=== PATIENT | male | born 1975 | race Caucasian/White ===

== ENCOUNTER 2020-03-24 01:41 | Outpatient (CLI) | payer OTHER, SELFPAY ==
[2020-03-24 18:13] LABS: SARS-CoV-2 RNA PCR Negative
== END 2020-03-24 01:42 | disposition home or self-care (01) ==
LOC: ANHCOVIDDT 01:41
PROVIDERS: PCP Family Medicine; Visit Provider Internal Medicine Gastroenterology
DX: Z01.812 Encounter for preprocedural laboratory examination (principal); Z20.822 Contact with and (suspected) exposure to COVID-19
CPT/HCPCS: C9803; U0003; U0005

== ENCOUNTER 2020-03-27 02:36 | Day surgery (SDC) | payer OTHER, SELFPAY ==
[2020-03-16 08:50] VITALS: BMI 29.2
--- NOTE | 2020-03-25 15:41 | WPDANESEPPF ---
Anes - Initial Pre Proc Eval Procedure: Operation Date: 03/27/20 10:30 Proposed Procedures p Esophagogastroduodenoscopy & Colonoscopy - Frederick Angeles MD Date/Time: 03/25/20 15:41 Surgeon: Frederick Angeles MD Pre Op Diagnosis: abdominal Pain, Change In bowel Habits,Wt.Loss,Ref Patient Data Age: 44 Gender: M Height: 1.75 m Weight: 90 kg Allergies Allergy/AdvReac Type Severity Reaction Status Date / Time No Known Allergies Allergy Verified 03/27/20 09:18 Home Medications Medication Instructions Recorded Confirmed Type multivitamin 1 tablet PO DAILY 05/02/19 03/27/20 History fluticasone propionate 50 1 spray INTRANASAL BID #16 ml 02/26/20 03/27/20 Rx mcg/actuation nasal spray,suspension lansoprazole 30 mg capsule,delayed 30 mg PO DAILY #30 cap 02/26/20 03/27/20 Rx release Patient hx anesthesia problems: none Family hx anesthesia problems: none PMFSH Past Medical History Medical History Abdominal pain Abnormal fasting glucose BMI 29.0-29.9,adult Clear cell carcinoma of left kidney COVID-19 (10/21/19) Encounter for prostate cancer screening Encounter for wellness examination in adult Family history of colon cancer in father GERD (gastroesophageal reflux disease) Unexplained weight loss Vitamin B12 deficiency anemia Surgical History Surgical History (Updated 03/25/20 @ 15:41 by Quincy France DO) History of partial nephrectomy Family History Family History Father Diabetes mellitus Family history of hypercholesterolemia Patient's father is in good health Family history of cardiovascular disease Cerebrovascular accident Grandparent Diabetes mellitus Family history of cardiovascular disease Cerebrovascular accident, Onset Age: 53 Family history of renal failure, Onset Age: 50 Family history of congestive heart failure Mother Family history of obesity Family history of hypercholesterolemia Patient's mother is in good health Sibling Family history of migraine headaches Patient's sister is in good health Social History Social History Smoking status: Never smoker Alcohol intake: never Substance use: never Substance use type: does not use Living arrangements: with family Gender identity (if verbalized by the patient): Male Spiritual care concerns: No Anes - Eval Final PreProcedure Day of Procedure 03/25/20 15:41 Patient weight: overweight Heart: regular rate and rhythm Lungs: clear to auscultation and normal air movement Airway: Mallampati scale class II Neurological: alert and oriented Last oral intake: >/= 8 hours ASA classification: III Emergent: no Anesthetic plan: proceed Anesthesia type and monitoring: general GIVS and standard monitoring Informed Consent: The patient's anesthetic plan and its attendant risks and benefits were discussed with the patient/family/POA. Questions were solicited and answers provided to the satisfaction of the patient/family/POA.
[2020-03-27 09:20] VITALS: BP 138/84; PULSE 60; RESP 16; TEMP 36.3; O2SAT 100; BMI 29.0
[2020-03-27] MEDS: LACTATED RINGERS 1,000 ML 150 ML IV CONT (09:32)
[2020-03-27] MEDS: BENZOCAINE (*SP) 60 ML SPRAY CAN (HURRICAINE) 1 SPRAY MUCOUS MEM (10:27)
[2020-03-27 10:51] VITALS: BP 94/55; PULSE 93; RESP 15; O2SAT 100
--- NOTE | 2020-03-27 10:51 | WPDHPUPDATE1 ---
History and Physical Update Update Date/Time: 03/27/20 10:51 History and Physical has been reviewed, including an updated exam of the patient. There are NO changes in the patient's condition. Risks, benefits, and alternatives have been discussed and questions answered. Patient agrees to proceed with procedure.
[2020-03-27 11:01] VITALS: BP 102/64; PULSE 61; RESP 19; O2SAT 100
[2020-03-27 11:11] VITALS: BP 117/81; PULSE 66; RESP 20; O2SAT 100
== END 2020-03-27 11:20 | disposition home or self-care (01) ==
PROVIDERS: PCP Family Medicine; Visit Provider Internal Medicine Gastroenterology
PROC: 0DJ08ZZ Inspection of Upper Intestinal Tract, Via Natural or Artificial Opening Endoscopic (ICD-10-PCS; CPT 43235; principal; 2020-03-27 10:30)
DX: R10.84 Generalized abdominal pain (principal); R19.4 Change in bowel habit; R73.01 Impaired fasting glucose; Z86.16 Personal history of COVID-19; K21.9 Gastro-esophageal reflux disease without esophagitis; E53.8 Deficiency of other specified B group vitamins; R63.4 Abnormal weight loss; R13.19 Other dysphagia; D13.1 Benign neoplasm of stomach; K64.8 Other hemorrhoids; K29.50 Unspecified chronic gastritis without bleeding
CPT/HCPCS: 43239; 45378; 88305; C9803; J2001; J2704; J7120; U0003; U0005

== ENCOUNTER 2020-04-03 08:45 | Outpatient (CLI) | payer BC, OTHER, SELFPAY ==
--- NOTE | 2020-04-03 14:03 | WPDPFTINT ---
PFT Interpretation This is a pulmonary function test with pre and post-bronchodilator spirometry, plethysmography and diffusing capacity. The test was performed and results interpreted in accordance with the 2019 and 2005 ATS/ERS Task Force guidelines respectively using the Nhan/[place] reference equations. Findings: Spirometry: There is decreased maximal expiratory airflow at all lung volumes. The contour the inspiratory flow tracing are normal. The pre bronchodilator FVC is 4.77 L, 97% predicted. The pre bronchodilator FEV1 is 3.16 L, 84% predicted. The FEV1: FVC ratio 66%. The post bronchodilator FVC is 4.84 L, representing a 2% increase. The post bronchodilator FEV1 is 2.88 L, representing a 9% decrease. Plethysmography: The total lung capacity is 6.27 L, 94% predicted. The functional residual capacity is 2.63 L, 76% predicted. The residual volume is 1.50 L, 75% predicted. Diffusing capacity the absolute diffusion capacity is 28.2, 99% predicted. The diffusing capacity corrected for alveolar volume is 4.97, 118% predicted Impression: There is a decreased maximal expiratory airflow at all lung volumes and a decreased FEV1: FVC ratio with a normal FEV1. This pattern is consistent with a mild obstructive abnormality from small airways disease. Clinical correlation recommended. There is no significant improvement after inhaling a single dose of albuterol. There is a reduced functional residual capacity and residual volume with a normal total lung capacity. This is an abnormal but nonspecific lung volume pattern. The diffusing capacity is normal. There are no prior studies for comparison
== END 2020-04-03 08:46 | disposition home or self-care (01) ==
PROVIDERS: PCP Family Medicine; Visit Provider Family Medicine
DX: R06.02 Shortness of breath (principal); R94.2 Abnormal results of pulmonary function studies
CPT/HCPCS: 94060; 94726; 94729

== ENCOUNTER 2020-07-13 08:30 | Outpatient (RCR) | payer BC, OTHER, SELFPAY ==
--- NOTE | 2020-06-12 17:03 | PTOPEVAL ---
PHYSICAL THERAPY EVALUATION Thank you for referring Aditya Spicer to [facility].? Aditya is a 44 y/o male evaluated with the dx of left shoulder pain/tendonitis. The patient is scheduled to be seen for therapy? 2 x/week for 5 weeks. Please review, sign, date and return this plan of care RAMIRO. I agree with and certify that the following plan of care is medically necessary. 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 The patient has gotten better but still has shoulder and arm pain when trying to lift or overuse the arm. The patient has pain in am if he sleeps on his left side. The patient is aching today due to carrying a heavier tote for about 200 yards. Pt had been seeing a chiropractor for his shoulder and will stop now due to having PT now. The patient works for a [employer] company but no lifting in his job. 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 The patient is right handed, does some fishing and yardwork and helps with household activities. Pt is right hand dominant. Diagnostic Tests X-Rays For This Problem Yes: ball of shoulder high in the socket; rtc irritation, very mild OA Pain Assessment Timing of Pain Assessment Timing of Pain Assessment Assessment Pain Scale Pain Scale Used Numeric (1 - 10) Self Report Pain Assessment Left Shoulder(s) Reported Pain Level 3 Pain Radiation Left Arm Other Pain Description sometimes pain is an 8 if
--- NOTE | 2020-07-13 12:14 | PTOPEVAL ---
PHYSICAL THERAPY DISCHARGE Thank you for referring Aditya Spicer to [facility].? Marlon has been seen 9 visits for the dx of left shoulder pain/tendonitis. He has met his goals and PT DC'ed. Please review, sign, date and return this plan of care. I agree with and certify the following plan of care. Referring Physician Date Referring Provider: Vel Hummel MD *PT Outpatient Discharge Start: 06/12/20 15:30 Freq: Status: Active Protocol: Document 07/13/20 08:32 MLV (Rec: 07/13/20 09:17 MLV [id number]) Therapy Assessment Status Assessment Status Discharge Evaluation Information Problem Diagnosis left shoulder pain/tendonitis Onset November 2019 Cause excessive lifting/pushing Additional Evaluation Detail Pt feels his shoulder is doing a lot better. Patient reports symptoms mainly if using his arm more such as mowing or lifting. The pain is less intense when it is present. Patient sleeping well, no modifications required. Pt continues to do his exercises at home w/o trouble. Patient feels he can continue his exercises on his own at this point. Pt to see the MD tomorrow. Pain Assessment Pain Scale Pain Scale Used Numeric (1 - 10) Self Report Pain Assessment Left Shoulder(s) Reported Pain Level 1 Other Pain Description pain with mowing is 3 of 10 Pain Score Pain Score 1: Self Report Interventions Used Interventions Used By Clinicians Electrical Stimulation, Exercise,Heat Pain Relief Interventions Used By Exercise Patient Cervical and Lumbar ROM Cervical ROM Cervical Lateral Flexion Right (0-50) 37 Query Text:Active in Degrees Cervical Lateral Flexion Left (0-50) 28 Query Text:Active in Degrees Upper Extremity Range of Motion General Upper Extremity Range of Motion Reason Not Measured WNL/Left,WNL/Right Upper Extremity Muscle Strength Testing General Upper Extremity Strength Reason Not Measured WFL/Left,WFL/Right Gross Upper Extremity Strength Comments lower trap weakness improved to 3+/5 erin. Palpation Assessment Palpation Palpation chronic upper trap tightness correlating to cervical motion limits Special Tests-Upper Extremity Shoulder Special Tests Empty Can (supraspinatus) Test Negativ
== END 2020-07-13 13:56 | disposition home or self-care (01) ==
LOC: ANHPT 08:30
PROVIDERS: PCP Family Medicine; Referring Provider Orthopaedic Surgery; Visit Provider Orthopaedic Surgery
DX: M75.82 Other shoulder lesions, left shoulder (principal)
CPT/HCPCS: 97014; 97110; 97140; 97162; G0283